=== PATIENT | male | born 1960 | race Two or more races ===

== ENCOUNTER 2023-03-08 16:10 | Emergency (ER) | payer OTHER ==
[~2023-03-08] VITALS: Ht 170.2 cm; Wt 68.0 kg
[2023-03-08 16:14] VITALS: O2SAT 100
[2023-03-08 17:49] LABS: BASOPHILS % 0.7 % (0.0-2.0); EOSINOPHILS % 1.8 % (0.0-5.0); HEMATOCRIT. 33.9 % (42.0-52.0); HEMOGLOBIN. 11.2 g/dL (14.0-18.0); LYMPHOCYTES % 14.9 % (20.0-50.0); MEAN CORPUSCULAR HEMOGLOBIN 29.8 pg (28.0-32.0); MEAN CORPUSCULAR HGB CONC 33.1 g/dL (31.0-37.0); MEAN CORPUSCULAR VOLUME 89.9 fL (80.0-94.0); MONOCYTES % 9.8 % (2.0-8.0); NEUTROPHILS % 72.8 % (40.0-76.0); PLATELET 311 x1000/uL (130-400); RED BLOOD CELL COUNT 3.77 mill/uL (4.7-6.1); RED CELL DISTRIBUTION WIDTH 16.3 % (11.6-14.6); WHITE BLOOD COUNT 8.7 x1000/uL (4.5-11.0)
[2023-03-08 18:02] LABS: AMMONIA < 10 uMol/L (<32)
[2023-03-08 18:05] LABS: ACETAMINOPHEN < 2 ug/mL (10-30); ALANINE AMINOTRANSFERASE 16 IU/L (10-49); ALBUMIN 4.1 g/dL (3.2-4.8); ASPARTATE AMINOTRANSFERASE 18 IU/L (<34); BILIRUBIN TOTAL 0.3 mg/dL (0.1-1.0); CALCIUM 9.5 mg/dL (8.7-10.4); CARBON DIOXIDE 28 mEq/L (21-32); CHLORIDE 102 mEq/L (98-107); GLUCOSE 98 mg/dL (70-105); POTASSIUM 3.9 mEq/L (3.5-5.1); PROTEIN TOTAL 7.5 g/dL (6.0-8.3); SODIUM 139 mEq/L (136-145); THYROID STIMULATING HORMONE 0.89 uIU/mL (0.55-4.78); UREA NITROGEN BLOOD 24 mg/dL (9-23)
[2023-03-08 18:11] LABS: ETHANOL BLOOD < 10 mg/dL (<10); TROPONIN I HIGH SENSITIVITY < 4 ng/L (3.0-53)
[2023-03-08] MEDS ORDERED: LEVOFLOXACIN 750MG PREMIX 150 ML IV STA (18:40)
[2023-03-08] MEDS ORDERED: LEVOFLOXACIN 750MG PREMIX 150 ML IV NR (23:15)
[2023-03-09 05:16] VITALS: BP 150/84; PULSE 88; RESP 18; TEMP 98.3
== END 2023-03-09 05:58 | disposition short-term general hospital (02) ==
LOC: ER 16:10 → EDBEDREQ 19:02 → ER 03-09 05:58 → CANBEDREQ 03-10 20:52
DX: J18.9 Pneumonia, unspecified organism (principal)
CPT/HCPCS: 36415; 71045; 80053; 80307; 80320; 80329; 82140; 84443; 84484; 85025; 93005; 99285; G0480

== ENCOUNTER 2024-12-12 13:46 | Emergency (ER) | payer OTHER ==
[~2024-12-12] VITALS: Ht 175.3 cm; Wt 56.0 kg
[~2024-12-12 13:46] MED LIST: DAPT500F IV
[2024-12-12 13:52] VITALS: O2SAT 99
[2024-12-12] MEDS: SODIUM CHLORIDE 0.9% (SEPSIS BOLUS) IV ONE (15:00)
[2024-12-12] MEDS: ONDANSETRON HCL 4MG/2ML INJ IV ONE (15:02)
[2024-12-12] MEDS: PIPERACILLIN/TAZO 3.375G/50ML 50 ML IV ONE (15:02)
[2024-12-12 15:08] LABS: BASOPHILS % 0.8 % (0.0-2.0); EOSINOPHILS % 0.1 % (0.0-5.0); HEMATOCRIT. 21.6 % (42.0-52.0); HEMOGLOBIN. 7.1 g/dL (14.0-18.0); LYMPHOCYTES % 16.6 % (20.0-50.0); MEAN PLATELET VOLUME 7.2 fl (7.4-10.4); MONOCYTES % 12.3 % (2.0-8.0); NEUTROPHILS % 70.2 % (40.0-76.0); PLATELET 585 x1000/uL (130-400); RED BLOOD CELL COUNT 2.88 mill/uL (4.7-6.1); RED CELL DISTRIBUTION WIDTH 18.7 % (11.6-14.6)
[2024-12-12 15:13] LABS: INR 1.1
[2024-12-12 15:21] LABS: CREATININE 1.1 mg/dL (0.6-1.3); TROPONIN I HIGH SENSITIVITY < 4 ng/L (3.0-53); UREA NITROGEN BLOOD 31 mg/dL (9-23)
[2024-12-12 15:23] LABS: ASPARTATE AMINOTRANSFERASE 38 IU/L (<34); BILIRUBIN DIRECT 0.1 mg/dL (<=3.0); BILIRUBIN TOTAL 0.3 mg/dL (0.1-1.0); PROTEIN TOTAL 7.4 g/dL (6.0-8.3)
[2024-12-12] MEDS: VANCOMYCIN 1G PREMIX 200 ML IV ONE (15:25)
[2024-12-12 19:33] VITALS: BP 118/64; PULSE 95; RESP 18; TEMP 36.1; O2SAT 95
== END 2024-12-12 20:46 | disposition short-term general hospital (02) ==
LOC: ER 13:46 → CMPBEDREQ 12-13 03:16
DX: R53.1 Weakness (principal); R06.02 Shortness of breath; R65.10 Systemic inflammatory response syndrome (SIRS) of non-infectious origin without acute organ dysfunction; D64.9 Anemia, unspecified; E11.9 Type 2 diabetes mellitus without complications; F03.90 Unspecified dementia, unspecified severity, without behavioral disturbance, psychotic disturbance, mood disturbance, and anxiety
CPT/HCPCS: 99291; 96365; 96375; 80076; 80048; 83880; 83605; 83735; 85025; 85610; 87040; 87186; 84484; 87077; 36415; 84145; 71045; 93005; 96368; J2405; J2543; J3373; J7030; A4606